=== PATIENT | female | born 1985 | race Caucasian/White ===

== ENCOUNTER 2016-10-15 21:22 | Emergency (ER) | payer OTHER ==
[2016-10-15] MEDS ORDERED: METOCLOPRAMIDE 5 MG/ML 2 ML VIAL IVP STA (22:00)
[2016-10-15] MEDS ORDERED: SODIUM CHLORIDE 0.9% 2,000 ML IV STA (22:00)
--- NOTE | 2016-10-15 22:13 | ED ---
Nausea/Vomiting/Diarrhea HPI - General Chief complaint: Nausea/Vomiting/Diarrhea Stated complaint: 7 weeks /Vomiting Time Seen by Provider: 10/15/16 22:00 Source: patient, family, RN notes reviewed Mode of arrival: ambulatory Limitations: no limitations - History of Present Illness Initial comments: 31-year-old female presents emergency Department chief complaint nausea vomiting in . Patient is A0. Patient states she's approximate 7 weeks along. She has no complaints of the denies any vaginal bleeding vaginal discharge, abdominal pain, dysuria or hematuria. She states that she has an upcoming appointment with her OB. Patient denies any fevers or chills. Denies any chest pain or shortness breath. Patient states she had hyperemesis gravidarum during her first and she feels somewhat at this time. - Related Data Home Medications Medication Instructions Recorded Confirmed Hpa-Jdwr-Qkvkb Acid 1 cap PO DAILY 10/15/16 10/15/16 [-U Capsule (formulary)] Previous Rx's Medication Instructions Recorded Metoclopramide [Reglan] 10 mg PO TID PRN #15 tab 10/15/16 Allergies Allergy/AdvReac Type Severity Reaction Status Date / Time No Known Allergies Allergy Verified 10/15/16 22:13 Review of Systems ROS Statement: Those systems with pertinent positive or pertinent negative responses have been documented in the HPI. ROS Other: All systems not noted in ROS Statement are negative. Past Medical History Past Medical History: No Reported History History of Any Multi-Drug Resistant Organisms: None Reported Past Surgical History: No Surgical Hx Reported Past Psychological History: Anxiety Smoking Status: Former smoker Past Alcohol Use History: None Reported Past Drug Use History: None Reported General Exam Limitations: no limitations General appearance: alert, in no apparent distress ENT exam: Present: normal oropharynx, mucous membranes moist Respiratory exam: Present: normal lung sounds bilaterally. Absent: respiratory distress, wheezes, rales, rhonchi, stridor Cardiovascular Exam: Present: regular rate, normal rhythm, normal heart sounds. Absent: systolic murmur, diastolic murmur, rubs, gallop, clicks GI/Abdominal exam: Present: soft, normal bowel sounds. Absent: distended, tenderness, guarding, rebound, rigid Back exam: Absent: CVA tenderness (R), CVA tenderness (L) Skin exam: Present: warm, dry, intact, normal color. Absent: rash Course Vital Signs 10/15/16 21:35 Temperature 98.8 F Pulse Rate 63 Respiratory 18 Rate Blood Pressure 110/59 O2 Sat by Pulse 99 Oximetry Medical Decision Making - Medical Decision Making 31-year-old female presents emergency department for nausea vomiting . Patient feels improved after IV fluids, Reglan. Patient does have ketonuria. Patient was hydrated. Patient will be discharged with Reglan follow-up with OB. - Lab Data Result diagrams: 10/15/16 22:22 10/15/16 22:22 Lab Results 10/15/16 10/15/16 10/15/16 Range/Units 22:22 22:22 22:22 WBC 13.0 H (3.8-10.6) k/uL RBC 4.25 (3.80-5.40) m/uL Hgb 13.8 (11.4-16.0) gm/dL Hct 39.6 (34.0-46.0) % MCV 93.3 (80.0-100.0) fL MCH 32.6 (25.0-35.0) pg MCHC 35.0 (31.0-37.0) g/dL RDW 12.3 (11.5-15.5) % Plt Count 264 (150-450) k/uL Neutrophils % 73 % Lymphocytes % 20 % Monocytes % 5 % Eosinophils % 1 % Basophils % 0 % Neutrophils # 9.4 H (1.3-7.7) k/uL Lymphocytes # 2.6 (1.0-4.8) k/uL Monocytes # 0.6 (0-1.0) k/uL Eosinophils # 0.1 (0-0.7) k/uL Basophils # 0.0 (0-0.2) k/uL Sodium 136 L (137-145) mmol/L Potassium 3.9 (3.5-5.1) mmol/L Chloride 102 (98-107) mmol/L Carbon Dioxide 24 (22-30) mmol/L Anion Gap 10 mmol/L BUN 8 (7-17) mg/dL Creatinine 0.65 (0.52-1.04) mg/dL Est GFR (MDRD) Af Amer >60 (>60 ml/min/1.73 sqM) Est GFR (MDRD) Non-Af >60 (>60 ml/min/1.73 sqM) Glucose 76 (74-99) mg/dL Calcium 9.7 (8.4-10.2) mg/dL Total Bilirubin 0.7 (0.2-1.3) mg/dL AST 16 (14-36) U/L ALT 18 (9-52) U/L Alkaline Phosphatase 64 (38-126) U/L Total Protein 7.8 (6.3-8.2) g/dL Albumin 4.4 (3.5-5.0) g/dL Lipase 74 (23-300) U/L Urine Color Yellow Urine Appearance Cloudy H (Clear) Urine pH 6.0 (5.0-8.0) Ur Specific Ce[place] 1.024 (1.001-1.035) Urine Protein Trace H (Negative) Urine Glucose (UA) Negative (Negative) Urine Ketones 3+ H (Negative) Urine Blood Trace H (Negative) Urine Nitrite Negative (Negative) Urine Bilirubin Negative (Negative) Urine Urobilinogen <2.0 (<2.0) mg/dL Ur Leukocyte Esterase Large H (Negative) Urine RBC 11 H (0-5) /hpf Urine WBC 15 H (0-5) /hpf Ur Squamous Epith Cells 10 H (0-4) /hpf Urine Bacteria Occasional H (None) /hpf Urine Mucus Many H (None) /hpf Disposition Clinical Impression: Nausea/vomiting in Disposition: HOME SELF-CARE Condition: Stable Instructions: Acute Nausea and Vomiting (ED) Additional Instructions: Please return to the Emergency Department if symptoms worsen or any other concerns. Prescriptions: Metoclopramide [Reglan] 10 mg PO TID PRN #15 tab PRN Reason: GERD Referrals: Ayana Britton MD [Primary Care Provider] - 1-2 days Time of Disposition: 23:26
[2016-10-15 22:40] LABS: Basophils % (A) 0 %; CH 32.9; CHCM 35.3; Eosinophils # (A) 0.1 k/uL (0-0.7); Eosinophils % (A) 1 %; HCT 39.6 % (34.0-46.0); HGB 13.8 gm/dL (11.4-16.0); Luc # (Auto) 0.24; Luc % (Auto) 2; Lymphocytes # (A) 2.6 k/uL (1.0-4.8); Lymphocytes % (A) 20 %; MCH 32.6 pg (25.0-35.0); MCV 93.3 fL (80.0-100.0); Mean Platelet Volume 7.4; Monocytes # (A) 0.6 k/uL (0-1.0); Monocytes % (A) 5 %; Neutrophils # (A) 9.4 k/uL (1.3-7.7); Neutrophils % (A) 73 %; RBC 4.25 m/uL (3.80-5.40); RDW 12.3 % (11.5-15.5); WBC (Perox) 13.22
[2016-10-15 22:43] LABS: Appearance,Urine Cloudy (Clear); Bacteria,Urine Occasional /hpf; Bilirubin,Urine Negative (Negative); Glucose,Urine (UA) Negative (Negative); Ketones,Urine 3+ (Negative); Leukocyte Esterase,Urine Large (Negative); Mucus,Urine Many /hpf; Nitrite,Urine Negative (Negative); Particle Count 11525; Protein,Urine Trace (Negative); RBC,Urine 11 /hpf (0-5); Specific Gravity,Urine 1.024 (1.001-1.035); Squamous Epithelial Cell,Urine 10 /hpf (0-4); UA Billing (MACRO vs. MICRO) MICRO; Urobilinogen,Urine <2.0 mg/dL (<2.0); WBC,Urine 15 /hpf (0-5)
[2016-10-15 22:46] LABS: ALT 18 U/L (9-52); AST 16 U/L (14-36); Alkaline Phosphatase 64 U/L (38-126); Anion Gap 10 mmol/L; Blood Urea Nitrogen 8 mg/dL (7-17); Calcium 9.7 mg/dL (8.4-10.2); Carbon Dioxide 24 mmol/L (22-30); Chloride 102 mmol/L (98-107); Glucose 76 mg/dL (74-99); Non-African American GFR(MDRD) >60 (>60 ml/min/1.73 sqM); Potassium 3.9 mmol/L (3.5-5.1); Sodium 136 mmol/L (137-145); Total Bilirubin 0.7 mg/dL (0.2-1.3); Total Protein 7.8 g/dL (6.3-8.2)
[2016-10-15 23:34] VITALS: BP 113/53; PULSE 86; RESP 16; TEMP 97.8
== END 2016-10-15 23:34 | disposition home or self-care (01) ==
LOC: EC 21:22
DX: O21.0 Mild hyperemesis gravidarum (principal); Z87.891 Personal history of nicotine dependence; Z3A.01 Less than 8 weeks gestation of pregnancy; Z79.899 Other long term (current) drug therapy
CPT/HCPCS: 99284; 96374; 96361; 36415; 80053; 83690; 85025; 81001; 84702; 87086; J2765

== ENCOUNTER 2016-11-06 13:23 | Emergency (ER) | payer OTHER ==
[2016-11-06] MEDS ORDERED: ONDANSETRON 4 MG/2 ML VIAL IVP STA (13:54)
[2016-11-06] MEDS ORDERED: SODIUM CHLORIDE 0.9% 1,000 ML IV STA ×2 (13:56)
[2016-11-06 14:21] LABS: Basophils % (A) 0 %; CH 32.8; CHCM 36.3; Eosinophils # (A) 0.1 k/uL (0-0.7); Eosinophils % (A) 0 %; HCT 40.7 % (34.0-46.0); HDW 2.16; HGB 14.8 gm/dL (11.4-16.0); Luc # (Auto) 0.17; Luc % (Auto) 1; Lymphocytes % (A) 13 %; MCHC 36.4 g/dL (31.0-37.0); MCV 90.6 fL (80.0-100.0); Mean Platelet Volume 7.3; Monocytes # (A) 0.5 k/uL (0-1.0); Monocytes % (A) 3 %; Neutrophils # (A) 12.8 k/uL (1.3-7.7); Neutrophils % (A) 82 %; RDW 12.4 % (11.5-15.5); WBC 15.6 k/uL (3.8-10.6); WBC (Perox) 14.49
[2016-11-06 14:29] LABS: Appearance,Urine Clear (Clear); Bilirubin,Urine Negative (Negative); Glucose,Urine (UA) Negative (Negative); Ketones,Urine 4+ (Negative); Leukocyte Esterase,Urine Small (Negative); Mucus,Urine Occasional /hpf; Nitrite,Urine Negative (Negative); PH, Urine 5.5 (5.0-8.0); Particle Count 8659; Protein,Urine 1+ (Negative); RBC,Urine 8 /hpf (0-5); Specific Gravity,Urine 1.027 (1.001-1.035); Squamous Epithelial Cell,Urine 2 /hpf (0-4); UA Billing (MACRO vs. MICRO) MICRO; WBC,Urine 10 /hpf (0-5)
[2016-11-06 14:33] LABS: ALT 26 U/L (9-52); AST 26 U/L (14-36); Alkaline Phosphatase 63 U/L (38-126); Anion Gap 18 mmol/L; Blood Urea Nitrogen 15 mg/dL (7-17); Carbon Dioxide 16 mmol/L (22-30); Chloride 104 mmol/L (98-107); Glucose 70 mg/dL (74-99); Non-African American GFR(MDRD) >60 (>60 ml/min/1.73 sqM); Potassium 4.5 mmol/L (3.5-5.1); Sodium 138 mmol/L (137-145); Total Bilirubin 0.9 mg/dL (0.2-1.3)
--- NOTE | 2016-11-06 15:41 | US ---
EXAMINATION TYPE: US OB <= 14 wk fetus DATE OF EXAM: 11/06/2016 COMPARISON: NONE CLINICAL HISTORY: Pain. vomitimg EXAM PERFORMED: Transabdominal (TA) EXAM MEASUREMENTS: GESTATIONAL AGE / DATING Physician Established: not established Dates by LMP: (10 weeks/2 days) EDC: 06/02/2017 Dates by First Scan: this is first scan Dates by Current Scan for: (10 weeks/5 days) EDC: 05/30/2017 MATERNAL ANATOMY Uterus: 10.1 x 7.9 x 9.8 cm Right Ovary: 2.9 x 1.8 x 3.5 cm Left Ovary: 3.4 x 1.9 x 3.4 Post CDS / Adnexa: wnl Presence of free fluid: none GESTATION / SURVEY CRL: 3.8cm (10 weeks/5 days) Yolk Sac (normal less than 6mm): not seen Heart Rate: 152 bpm Rhythm: Normal IUP: Viable IUP Date of LMP: 08/26/2016 viable IUP that correlates with LMP. IMPRESSION: Single intrauterine gestation estimated at 10 weeks 5 days gestation based on crown-rump length. Card iac activity measures 152 bpm.
--- NOTE | 2016-11-06 17:43 | ED ---
General Adult HPI - General Chief complaint: Nausea/Vomiting/Diarrhea Stated complaint: 10 weeks /Vomiting Time Seen by Provider: 11/06/16 13:40 Source: patient, RN notes reviewed Mode of arrival: ambulatory Limitations: no limitations - History of Present Illness Initial comments: 31-year-old female presents with a 2 day history of nausea and vomiting, approximately 12 episodes. Nonbloody nonbilious. Patient is currently approximately 10 weeks . She denies abdominal pain. Denies fever. States she has had some chills. She also reports having had morning sickness since approximately 6 weeks. She had similar symptoms with her first . She denies any vaginal bleeding. Patient has not had an ultrasound to confirm her . is diagnosed by home test. Her last menstrual period was August 26. She has not received any formal care but has been taking vitamins and has an appointment with Y[facility] SWITCH OPERATOR on November 10 which is 4 days from now. - Related Data Home Medications Medication Instructions Recorded Confirmed Mno-Djnq-Pwkxx Acid 1 cap PO DAILY 10/15/16 11/06/16 [-U Capsule (formulary)] Previous Rx's Medication Instructions Recorded Ondansetron Odt [Zofran Odt] 4 mg PO Q8HR PRN #10 tab 11/06/16 Allergies Allergy/AdvReac Type Severity Reaction Status Date / Time No Known Allergies Allergy Verified 11/06/16 13:40 Review of Systems ROS Statement: Those systems with pertinent positive or pertinent negative responses have been documented in the HPI. ROS Other: All systems not noted in ROS Statement are negative. Cardiovascular: Denies: chest pain, palpitations Endocrine: Denies: fatigue Musculoskeletal: Denies: back pain Past Medical History Past Medical History: No Reported History History of Any Multi-Drug Resistant Organisms: None Reported Past Surgical History: No Surgical Hx Reported Past Psychological History: Anxiety Smoking Status: Current every day smoker Past Alcohol Use History: None Reported Past Drug Use History: None Reported General Exam Limitations: no limitations General appearance: alert, in no apparent distress Head exam: Present: atraumatic, normocephalic Eye exam: Present: normal appearance, PERRL ENT exam: Present: mucous membranes dry Respiratory exam: Present: normal lung sounds bilaterally. Absent: respiratory distress Cardiovascular Exam: Present: regular rate, normal rhythm GI/Abdominal exam: Present: soft. Absent: distended, tenderness Extremities exam: Present: normal inspection. Absent: pedal edema Back exam: Present: normal inspection. Absent: CVA tenderness (R), CVA tenderness (L) Neurological exam: Present: alert, oriented X3 Psychiatric exam: Present: normal affect, normal mood Skin exam: Present: warm, dry Course Vital Signs 11/06/16 11/06/16 13:32 14:40 Temperature 97.1 F L 98.0 F Pulse Rate 78 61 Respiratory 16 16 Rate Blood Pressure 119/73 100/50 O2 Sat by Pulse 98 100 Oximetry - Reevaluation(s) Reevaluation #1: 11/06/16 17:37 Patient is reevaluated at 1730. Patient is feeling better she has no complaints of nausea at this time. She has received 2 L of IV fluid. She will follow-up with her Y[facility] SWITCH OPERATOR at her scheduled appointment on November 10. Medical Decision Making - Medical Decision Making Female presenting with a 4 week history of nausea vomiting worse over the last 2 days. She has had approximately 12 episodes of vomiting. She is currently 10 weeks by last menstrual period. She has had no formal care. She is currently taking only vitamins. Denies any abdominal pain. She appears dehydrated on examination with very dry mucous membranes. She is given IV fluids and electrolytes as well as CBC is obtained. CBC is unremarkable, electrolytes are within normal limits, urinalysis is positive for ketones consistent with profound nausea vomiting and dehydration. Patient is reevaluated and is feeling much better states her nausea is resolved. She has had no episodes of vomiting in the emergency department Ultrasound is obtained to confirm intrauterine . There is a 10 week 5 day single intrauterine gestation on ultrasound. heart tones Patient is instructed on when to return to the emergency department. Diagnosis: Nausea and vomiting of Disposition: Home with outpatient OB follow-up - Lab Data Result diagrams: 11/06/16 14:02 11/06/16 14:02 Lab Results 11/06/16 11/06/16 11/06/16 Range/Units 14:02 14:02 14:02 WBC 15.6 H (3.8-10.6) k/uL RBC 4.50 (3.80-5.40) m/uL Hgb 14.8 (11.4-16.0) gm/dL Hct 40.7 (34.0-46.0) % MCV 90.6 (80.0-100.0) fL MCH 33.0 (25.0-35.0) pg MCHC 36.4 (31.0-37.0) g/dL RDW 12.4 (11.5-15.5) % Plt Count 338 (150-450) k/uL Neutrophils % 82 % Lymphocytes % 13 % Monocytes % 3 % Eosinophils % 0 % Basophils % 0 % Neutrophils # 12.8 H (1.3-7.7) k/uL Lymphocytes # 2.0 (1.0-4.8) k/uL Monocytes # 0.5 (0-1.0) k/uL Eosinophils # 0.1 (0-0.7) k/uL Basophils # 0.0 (0-0.2) k/uL Sodium 138 (137-145) mmol/L Potassium 4.5 (3.5-5.1) mmol/L Chloride 104 (98-107) mmol/L Carbon Dioxide 16 L (22-30) mmol/L Anion Gap 18 mmol/L BUN 15 (7-17) mg/dL Creatinine 0.70 (0.52-1.04) mg/dL Est GFR (MDRD) Af Amer >60 (>60 ml/min/1.73 sqM) Est GFR (MDRD) Non-Af >60 (>60 ml/min/1.73 sqM) Glucose 70 L (74-99) mg/dL Calcium 10.0 (8.4-10.2) mg/dL Total Bilirubin 0.9 (0.2-1.3) mg/dL AST 26 (14-36) U/L ALT 26 (9-52) U/L Alkaline Phosphatase 63 (38-126) U/L Total Protein 8.0 (6.3-8.2) g/dL Albumin 4.7 (3.5-5.0) g/dL Lipase 77 (23-300) U/L Urine Color Urine Appearance (Clear) Urine pH (5.0-8.0) Ur Specific [place]rose (1.001-1.035) Urine Protein (Negative) Urine Glucose (UA) (Negative) Urine Ketones (Negative) Urine Blood (Negative) Urine Nitrite (Negative) Urine Bilirubin (Negative) Urine Urobilinogen (<2.0) mg/dL Ur Leukocyte Esterase (Negative) Urine RBC (0-5) /hpf Urine WBC (0-5) /hpf Ur Squamous Epith Cells (0-4) /hpf Hyaline Casts (0-2) /lpf Urine Mucus (None) /hpf Urine HCG, Qual Detected (Not Detectd) 11/06/16 Range/Units 14:02 WBC (3.8-10.6) k/uL RBC (3.80-5.40) m/uL Hgb (11.4-16.0) gm/dL Hct (34.0-46.0) % MCV (80.0-100.0) fL MCH (25.0-35.0) pg MCHC (31.0-37.0) g/dL RDW (11.5-15.5) % Plt Count (150-450) k/uL Neutrophils % % Lymphocytes % % Monocytes % % Eosinophils % % Basophils % % Neutrophils # (1.3-7.7) k/uL Lymphocytes # (1.0-4.8) k/uL Monocytes # (0-1.0) k/uL Eosinophils # (0-0.7) k/uL Basophils # (0-0.2) k/uL Sodium (137-145) mmol/L Potassium (3.5-5.1) mmol/L Chloride (98-107) mmol/L Carbon Dioxide (22-30) mmol/L Anion Gap mmol/L BUN (7-17) mg/dL Creatinine (0.52-1.04) mg/dL Est GFR (MDRD) Af Amer (>60 ml/min/1.73 sqM) Est GFR (MDRD) Non-Af (>60 ml/min/1.73 sqM) Glucose (74-99) mg/dL Calcium (8.4-10.2) mg/dL Total Bilirubin (0.2-1.3) mg/dL AST (14-36) U/L ALT (9-52) U/L Alkaline Phosphatase (38-126) U/L Total Protein (6.3-8.2) g/dL Albumin (3.5-5.0) g/dL Lipase (23-300) U/L Urine Color Yellow Urine Appearance Clear (Clear) Urine pH 5.5 (5.0-8.0) Ur Specific [place] 1.027 (1.001-1.035) Urine Protein 1+ H (Negative) Urine Glucose (UA) Negative (Negative) Urine Ketones 4+ H (Negative) Urine Blood Small H (Negative) Urine Nitrite Negative (Negative) Urine Bilirubin Negative (Negative) Urine Urobilinogen 2.0 (<2.0) mg/dL Ur Leukocyte Esterase Small H (Negative) Urine RBC 8 H (0-5) /hpf Urine WBC 10 H (0-5) /hpf Ur Squamous Epith Cells 2 (0-4) /hpf Hyaline Casts 1 (0-2) /lpf Urine Mucus Occasional H (None) /hpf Urine HCG, Qual (Not Detectd) Disposition Clinical Impression: Hyperemesis arising during Disposition: HOME SELF-CARE Condition: Good Instructions: Acute Nausea and Vomiting (ED) Additional Instructions: Patient will follow-up with her YARD SWITCH OPERATOR on November 10. She will return to the emergency department for worsening nausea vomiting or signs of dehydration. Prescriptions: Ondansetron Odt [Zofran Odt] 4 mg PO Q8HR PRN #10 tab PRN Reason: Nausea And Vomiting Referrals: Ayana Britton MD [Primary Care Provider] - 1-2 days Mike Koch MD [STAFF PHYSICIAN] - 1-2 days Time of Disposition: 17:37
[2016-11-06 17:54] VITALS: BP 104/70; PULSE 69; RESP 18; TEMP 97.7
== END 2016-11-06 17:54 | disposition home or self-care (01) ==
LOC: EC 13:23
DX: O21.0 Mild hyperemesis gravidarum (principal); O99.331 Smoking (tobacco) complicating pregnancy, first trimester; F17.200 Nicotine dependence, unspecified, uncomplicated; Z3A.10 10 weeks gestation of pregnancy
CPT/HCPCS: 36415; 80053; 83690; 85025; 81001; 81025; 76801; 99284; 96374; 96361 ×4; J2405

== ENCOUNTER 2016-11-29 14:05 | Emergency (ER) | payer OTHER ==
[2016-11-29 14:09] VITALS: BP 102/64; PULSE 77; RESP 18; TEMP 97.8
[2016-11-29] MEDS ORDERED: ONDANSETRON 4 MG ODT STARTER PACK 2 TAB BTL PO STA (14:26)
[2016-11-29] MEDS ORDERED: ONDANSETRON ODT 4 MG TAB PO STA (14:26)
--- NOTE | 2016-11-29 14:26 | ED ---
General Adult HPI - General Chief complaint: Nausea/Vomiting/Diarrhea Stated complaint: vomiting/13 wks Time Seen by Provider: 11/29/16 14:05 Source: patient, RN notes reviewed Mode of arrival: ambulatory Limitations: no limitations - History of Present Illness Initial comments: This is a 31-year-old female presents emergency Department 13 weeks . Patient states she ran out of her Zofran home she started vomiting yesterday has continued to vomit throughout the day. Patient states he feels as though she had a little bit dehydrated she decided come to the emergency department to get her medications refilled. Patient denies any abdominal pain patient denies any pelvic pain patient denies any vaginal bleeding. Patient denies any pelvic cramping. Patient denies any fever chills per patient denies any difficulty breathing shortest breath per patient denies any lightheadedness dizziness or near syncopal episode. Patient states she does not really want an IV she just wants get some medicine so that she can go home and drink fluids on her own. - Related Data Home Medications Medication Instructions Recorded Confirmed Blw-Lend-Fjwms Acid 1 cap PO DAILY 10/15/16 11/06/16 [-U Capsule (formulary)] Previous Rx's Medication Instructions Recorded Ondansetron Odt [Zofran Odt] 4 mg PO Q8HR PRN #10 tab 11/06/16 Ondansetron Odt [Zofran Odt] 4 mg PO Q8HR PRN #10 tab 11/29/16 Allergies Allergy/AdvReac Type Severity Reaction Status Date / Time No Known Allergies Allergy Verified 11/29/16 14:09 Review of Systems ROS Statement: Those systems with pertinent positive or pertinent negative responses have been documented in the HPI. ROS Other: All systems not noted in ROS Statement are negative. Past Medical History Past Medical History: No Reported History History of Any Multi-Drug Resistant Organisms: None Reported Past Surgical History: No Surgical Hx Reported Past Psychological History: Anxiety, Depression Smoking Status: Current every day smoker Past Alcohol Use History: None Reported Past Drug Use History: None Reported General Exam - General Exam Comments Initial Comments: GENERAL: Patient is well-developed and well-nourished. Patient is nontoxic and well- hydrated and is in no acute distress. ENT: Neck is soft and supple. No significant lymphadenopathy is noted. Oropharynx is clear. Moist mucous membranes. Neck has full range of motion without eliciting any pain. EYES: The sclera were anicteric and conjunctiva were pink and moist. Extraocular movements were intact and pupils were equal round and reactive to light. Eyelids were unremarkable. PULMONARY: Unlabored respirations. Good breath sounds bilaterally. No audible rales rhonchi or wheezing was noted. CARDIOVASCULAR: There is a regular rate and rhythm without any murmurs gallops or rubs. ABDOMEN: Soft and nontender with normal bowel sounds. No palpable organomegaly was noted. There is no palpable pulsatile mass. SKIN: Skin is clear with no lesions or rashes and otherwise unremarkable. NEUROLOGIC: Patient is alert and oriented x3. Cranial nerves II through XII are grossly intact. Motor and sensory are also intact. Normal speech, volume and content. Symmetrical smile. MUSCULOSKELETAL: Normal extremities with adequate strength and full range of motion. No lower extremity swelling or edema. No calf tenderness. LYMPHATICS: No significant lymphadenopathy is noted PSYCHIATRIC: Normal psychiatric evaluation. Normal interpersonal interactions appears functionally intact in deals appropriately with others. No signs of depression. No signs of anxiety. Limitations: no limitations Course Vital Signs 11/29/16 14:07 Temperature 97.8 F Pulse Rate 77 Respiratory 18 Rate Blood Pressure 102/64 O2 Sat by Pulse 99 Oximetry Disposition Clinical Impression: Hyperemesis gravidarum Disposition: HOME SELF-CARE Instructions: Hyperemesis Gravidarum (ED) Prescriptions: Ondansetron Odt [Zofran Odt] 4 mg PO Q8HR PRN #10 tab PRN Reason: Nausea And Vomiting Referrals: Ayana Britton MD [Primary Care Provider] - 1-2 days
== END 2016-11-29 14:47 | disposition home or self-care (01) ==
LOC: EC 14:05
DX: O21.0 Mild hyperemesis gravidarum (principal); O99.331 Smoking (tobacco) complicating pregnancy, first trimester; F17.200 Nicotine dependence, unspecified, uncomplicated; Z79.899 Other long term (current) drug therapy; Z3A.13 13 weeks gestation of pregnancy
CPT/HCPCS: 99283; S0119

== ENCOUNTER → 2017-01-04 | Outpatient (CLI) | payer OTHER ==
[2017-01-04 15:39] LABS: CH 32.3; CHCM 34.7; HCT 35.5 % (34.0-46.0); HGB 12.4 gm/dL (11.4-16.0); MCH 32.7 pg (25.0-35.0); MCV 93.5 fL (80.0-100.0); Mean Platelet Volume 7.2; RBC 3.79 m/uL (3.80-5.40); RDW 12.5 % (11.5-15.5); WBC 14.9 k/uL (3.8-10.6)
[2017-01-04 15:51] LABS: Glucose 66 mg/dL (74-99); Non-African American GFR(MDRD) >60 (>60 ml/min/1.73 sqM)
[2017-01-04 16:19] LABS: Hepatitis B Surface Ag Index 0.07
[2017-01-04 19:16] LABS: Treponemal Ab Non-Reactive (Non-Reactive)
[2017-01-04 20:28] LABS: Rubeola (Measles) IgG 1.3 AI
[2017-01-06 05:19] LABS: Toxoplasma Antibody (IgG) <3.0 IU/mL (<7.2)
[2017-01-06 08:21] LABS: Alpha Fetoprotein 52.1 ng/mL; Alpha Fetoprotein (M.O.M) 1.01 (Negative); B-HCG (M.O.M.) 1.73; Gestational Age (days) 5; Human Chorionic Gonadotropin 30.2 IU/mL; Inhibin A (M.O.M.) 1.81; Interpretation SeeBelow; Maternal Age at EDD (Yrs) 32; Smoker Yes; Unconjugated Estriol (M.O.M.) 1.67
== END | disposition home or self-care (01) ==
LOC: LABWHC1 14:33
PROVIDERS: ATTEND Obstetrics & Gynecology
DX: Z34.82 Encounter for supervision of other normal pregnancy, second trimester (principal); Z3A.00 Weeks of gestation of pregnancy not specified
CPT/HCPCS: 36415; 82105; 82565; 82677; 82947; 84702; 85027; 86336; 86762; 86765; 86777; 86778; 86780; 86850; 86900; 86901; 87340; 87390

== ENCOUNTER 2017-04-26 06:16 | Observation (INO) | payer OTHER ==
[2017-04-26 07:23] LABS: Basophils # (A) 0.1 k/uL (0-0.2); Basophils % (A) 0 %; Eosinophils % (A) 0 %; HCT 35.3 % (34.0-46.0); HGB 11.5 gm/dL (11.4-16.0); Lymphocytes # (A) 0.8 k/uL (1.0-4.8); Lymphocytes % (A) 8 %; MCH 30.4 pg (25.0-35.0); MCHC 32.5 g/dL (31.0-37.0); MCV 93.4 fL (80.0-100.0); Mean Platelet Volume 8.3; Monocytes # (A) 0.7 k/uL (0-1.0); Monocytes % (A) 7 %; Neutrophils # (A) 8.7 k/uL (1.3-7.7); Neutrophils % (A) 84 %; Platelet Count 343 k/uL (150-450); RBC 3.77 m/uL (3.80-5.40); RDW 13.5 % (11.5-15.5); WBC 10.4 k/uL (3.8-10.6)
[2017-04-26] MEDS: DEXTROSE 5%-LACTATED RINGERS 1,000 ML IV SCH ×2 (07:24→18:21)
[2017-04-26 07:31] LABS: Potassium 4.5 mmol/L (3.5-5.1)
[2017-04-26] MEDS: LACTATED RINGERS 1,000 ML IV SCH (07:37)
--- NOTE | 2017-04-26 07:56 | P.HPOB ---
History of Present Illness H&P Date: 04/26/17 Chief Complaint: Nausea vomiting and contractions. This patient is a pleasant 31-year-old 2 para 1 female estimated date of confinement 06/02/2017 estimated gestational age 34-5/7 weeks gestation admitted to labor and delivery with today complaints of nausea vomiting and most recent onset of contractions. Patient's care has been uncomplicated. Patient states that she began getting sick on Tuesday and is unable to keep anything down. No diarrhea. Patient began having some contraction she felt about 3:00 this morning and presented to labor and delivery for evaluation. Review of Systems Constitutional: Reports as per HPI Cardiovascular: Denies chest pain, Denies shortness of breath Gastrointestinal: Reports heartburn, Reports nausea, Reports vomiting Genitourinary: Reports Menstruation: Reports amenorrhea Past Medical History Past Medical History: No Reported History History of Any Multi-Drug Resistant Organisms: None Reported Past Surgical History: No Surgical Hx Reported Past Anesthesia/Blood Transfusion Reactions: No Reported Reaction Past Psychological History: No Psychological Hx Reported Smoking Status: Current every day smoker Past Alcohol Use History: None Reported Past Drug Use History: None Reported Medications and Allergies Home Medications Medication Instructions Recorded Confirmed Type Ikv-Vnlh-Pykbp Acid 1 cap PO DAILY 10/15/16 04/26/17 History [-U Capsule (formulary)] Allergies Allergy/AdvReac Type Severity Reaction Status Date / Time No Known Allergies Allergy Verified 04/26/17 06:47 Exam - Vital Signs Vital signs: Intake and Output 04/25/17 04/26/17 04/26/17 22:59 06:59 14:59 Other: Weight 163 kg - OBG Physical Exam Abdomen: bowel sounds normal, no diffuse tenderness, no bruit present, no guarding noted, no hepatomegaly, no splenomegaly, no mass Vulva: both: normal Vagina: normal moisture, no discharge Cervix: Cervix is 2 cm dilated and thick. Uterus: enlarged Results blood work shows she is O positive, rubella immune, RPR nonreactive, HIV nonreactive, hepatitis B negative, quad screen was normal, ultrasounds have been normal, group B streptococcus not done yet but has a history of positive with previous . Result Diagrams: 04/26/17 07:00 04/26/17 07:00 Abnormal Lab Results - Last 24 Hours (Table) 12/19/17 12/19/17 Range/Units 07:00 07:00 RBC 3.77 L (3.80-5.40) m/uL Neutrophils # 8.7 H (1.3-7.7) k/uL Lymphocytes # 0.8 L (1.0-4.8) k/uL Sodium 133 L (137-145) mmol/L Carbon Dioxide 16 L (22-30) mmol/L Assessment and Plan (1) Nausea & vomiting Narrative/Plan: This is a pleasant 31-year-old 2 para 1 female 34-5/7 weeks' gestation with 2 day history of nausea vomiting and inability to keep anything down and now with contractions. This most likely is secondary to dehydration. Plan at this time is IV fluids, admission for observation, due to concern for delivery Celestone will be administered. When I get a complete ultrasound to check weight and position. If patient were to progress she would need to be transferred due to being less than 35 weeks. Current Visit: Yes Status: Acute Code(s): R11.2 - NAUSEA WITH VOMITING, UNSPECIFIED SNOMED Code(s): 52968493 (2) uterine contractions in third trimester, antepartum Current Visit: Yes Status: Acute Code(s): O47.03 - FALSE LABOR BEFORE 37 COMPLETED WEEKS OF GEST, THIRD TRI SNOMED Code(s): 578116933
[2017-04-26] MEDS: BETAMET ACET-BETAMETH SOD PHOS 6 MG/ML VIAL IM SCH (08:34)
[2017-04-26 08:55] VITALS: BMI 63.6
[2017-04-26 09:12] LABS: Appearance,Urine Clear (Clear); Bacteria,Urine Rare /hpf; Bilirubin,Urine Negative (Negative); Blood,Urine Small (Negative); Color,Urine Yellow; Glucose,Urine (UA) 4+ (Negative); Leukocyte Esterase,Urine Moderate (Negative); Mucus,Urine Rare /hpf; Nitrite,Urine Negative (Negative); PH, Urine 5.5 (5.0-8.0); Protein,Urine Trace (Negative); RBC,Urine 4 /hpf (0-5); Specific Gravity,Urine 1.024 (1.001-1.035); Squamous Epithelial Cell,Urine 6 /hpf (0-4); Urobilinogen,Urine <2.0 mg/dL (<2.0); WBC,Urine 7 /hpf (0-5)
[2017-04-26] MEDS ORDERED: ONDANSETRON 4 MG/2 ML VIAL IVP PRN (09:20)
[2017-04-26 09:58] LABS: Ketones,Urine 4+ (Negative)
--- NOTE | 2017-04-26 15:35 | US ---
EXAMINATION TYPE: US OB >= 14 wk fetus DATE OF EXAM: 04/26/2017 COMPARISON: US < CLINICAL HISTORY: contractions TECHNIQUE: Transabdominal (TA) GESTATIONAL AGE / DATING Physician Established: (34 weeks/5 days) EDC: 06/02/17 Dates by LMP: (34 weeks/5 days) EDC: 06/02/17 Dates by First Scan: (35 weeks/1 days) EDC: 05/30/17 Dates by Current Scan: (34 weeks/3 days) EDC: 06/04/17 SURVEY IUP: Single PLACENTA: Anterior PREVIA: No Previa ANDRIA: 11.4 cm CERVICAL LENGTH (transabdominal: norm > 3.0cm): 1.0 cm CERVICAL LENGTH (transvaginal: norm> 2.5cm): not done per Kaylynn FERRARI BIOMETRY PRESENTATION: Vertex LIE: Longitudinal BPD: 8.7 cm 35 weeks / 1 days HC: 30.9 cm 34 weeks / 4 days AC: 30.7 cm 34 weeks / 4 days FL: 6.8 cm 34 weeks / 5 days ESTIMATED WEIGHT IN GRAMS: 2493 grams ESTIMATED WEIGHT IN LBS/OZ: 5 lbs. 8 oz. WEIGHT PERCENTAGE BASED ON ESTABLISHED DATES: 45% HC/AC: 1.0 FL/AC: 21.9 HEART RATE: 147 bpm RHYTHM: Normal IMPRESSION: 1. Single intrauterine gestation estimated at 34 weeks 3 days gestation based on current ultrasound m easurements. This would have a calculated EDC of 06/04/2017. 2. Cardiac activity measures 147 bpm. 3. small parts are not evaluated during this exam.
[2017-04-27] MEDS: LACTATED RINGERS 1,000 ML IV SCH ×2 (03:09→09:51)
--- NOTE | 2017-04-27 06:24 | P.PN ---
Progress Note - Text Progress Note Date: 04/27/17 Hospital day #2. Patient is 34-6/7 weeks' gestation. Urine showed 4+ ketones and yesterday she was given sufficient IV hydration and her contractions stopped. Patient was given Celestone repeat her second dose this morning. It appears her contractions related to acute dehydration secondary to her gastrointestinal illness. Patient is stable now for discharge home. She'll follow-up in my office in 1 week. She is encouraged to take lots of oral fluids and contact my office and unable to keep coming down for 12 to 24-hour period.
[2017-04-27] MEDS: BETAMET ACET-BETAMETH SOD PHOS 6 MG/ML VIAL IM SCH (08:28)
[2017-04-27 08:52] VITALS: BP 99/45; PULSE 87; RESP 18; TEMP 97.9
== END 2017-04-27 09:48 | disposition home or self-care (01) ==
LOC: FBPOP 06:16 → 4FBP 07:48
PROVIDERS: ADMIT Obstetrics & Gynecology; ATTEND Obstetrics & Gynecology
DX: O99.613 Diseases of the digestive system complicating pregnancy, third trimester (principal); K92.89 Other specified diseases of the digestive system; E86.0 Dehydration; O60.03 Preterm labor without delivery, third trimester; Z3A.34 34 weeks gestation of pregnancy; O99.333 Smoking (tobacco) complicating pregnancy, third trimester; F17.200 Nicotine dependence, unspecified, uncomplicated
CPT/HCPCS: 59025; 96372 ×2; 96374; 82731; 80051; 85025; 81001; 76805; G0463; G0378 ×2; J0702 ×2; J2405; 96360; 96365; 99214

== ENCOUNTER 2017-05-16 18:55 | Inpatient (IN) | payer OTHER ==
[~2017-05-16 18:55] MED LIST: BUPIVACAINE (PF) 0.25% 30 ML VIAL ONE; SODIUM CHLORIDE 0.9% 100 ML BAG ONE; fentaNYL (PF) 50 MCG/ML 5 ML AMP ONE
[2017-05-16] MEDS ORDERED: METHYLERGONOVINE 0.2 MG/ML 1 ML AMP IM PRN (21:39)
[2017-05-16] MEDS ORDERED: CARBOPROST TROMETHAMINE 250 MCG/ML 1 ML AMP IM PRN (21:39)
[2017-05-16] MEDS ORDERED: LIDOCAINE 1% (PF) 10 MG/ML (30 ML SDV) SQ PRN (21:39)
[2017-05-16] MEDS ORDERED: TERBUTALINE 1 MG/ML VIAL SQ PRN (21:39)
[2017-05-16] MEDS ORDERED: OXYTOCIN 10 UNIT/ML 1 ML VIAL IM PRN (21:39)
[2017-05-16] MEDS ORDERED: AMPICILLIN 2,000 MG in SODIUM CHLORIDE 0.9% 100 ML IVPB STA (21:39)
[2017-05-16 22:07] VITALS: BMI 28.5
[2017-05-16 22:19] LABS: Basophils % (A) 0 %; Eosinophils # (A) 0.1 k/uL (0-0.7); Eosinophils % (A) 1 %; HCT 35.3 % (34.0-46.0); HGB 11.8 gm/dL (11.4-16.0); Lymphocytes # (A) 3.1 k/uL (1.0-4.8); Lymphocytes % (A) 23 %; MCH 30.9 pg (25.0-35.0); MCHC 33.5 g/dL (31.0-37.0); MCV 92.4 fL (80.0-100.0); Mean Platelet Volume 7.3; Monocytes # (A) 0.7 k/uL (0-1.0); Monocytes % (A) 5 %; Neutrophils # (A) 9.7 k/uL (1.3-7.7); Neutrophils % (A) 70 %; Platelet Count 377 k/uL (150-450); RBC 3.83 m/uL (3.80-5.40); RDW 14.2 % (11.5-15.5); WBC 13.8 k/uL (3.8-10.6)
[2017-05-16] MEDS: LACTATED RINGERS 1,000 ML IV SCH (22:55)
[2017-05-17] MEDS ORDERED: OXYTOCIN 20 UNITS/1000 ML NS 1,000 ML IV SCH ×2 (02:30→09:22)
[2017-05-17] MEDS: AMPICILLIN 1,000 MG in SODIUM CHLORIDE 0.9% 50 ML IVPB SCH ×2 (02:49→07:07)
--- NOTE | 2017-05-17 07:07 | P.HPOB ---
History of Present Illness H&P Date: 05/17/17 Chief Complaint: Contractions This patient is a pleasant 31-year-old 2 para 1 female estimated date of confinement 06/02/2017 estimated gestational age 37-5/7 weeks gestation admitted by Dr. Gavin last evening with complaint of contractions. Patient's felt to be in active labor. care has been complicated by contractions otherwise without complications. She did have a positive group B strep with previous and with this as well. Patient has a previous term vaginal delivery. Review of Systems Gastrointestinal: Reports heartburn Genitourinary: Reports Menstruation: Reports amenorrhea Past Medical History Past Medical History: No Reported History History of Any Multi-Drug Resistant Organisms: None Reported Past Surgical History: No Surgical Hx Reported Past Anesthesia/Blood Transfusion Reactions: No Reported Reaction Past Psychological History: No Psychological Hx Reported Smoking Status: Current every day smoker Past Alcohol Use History: None Reported Past Drug Use History: None Reported - Past Family History Mother History Unknown: Yes Medications and Allergies Home Medications Medication Instructions Recorded Confirmed Type Bln-Fkys-Nkwry Acid 1 cap PO DAILY 10/15/16 05/16/17 History [-U Capsule (formulary)] Allergies Allergy/AdvReac Type Severity Reaction Status Date / Time No Known Allergies Allergy Verified 05/16/17 19:08 Exam - Vital Signs Vital signs: Vital Signs Temp Pulse Resp BP Pulse Ox 05/16/17 22:02 97.1 F L 81 19 124/66 100 05/16/17 22:00 97.1 F L 81 18 147/71 100 Intake and Output 05/16/17 05/17/17 05/17/17 22:59 06:59 14:59 Intake Total 100 Balance 100 Intake: Oral 100 Other: # Voids 1 Weight 73.028 kg - OBG Physical Exam Abdomen: bowel sounds normal, no diffuse tenderness, no bruit present, no guarding noted, no hepatomegaly, no splenomegaly, no mass Vagina: normal moisture, no discharge Cervix: no lesion (Cervix is 4-5 cm dilated.), no discharge Uterus: enlarged (Fundal height is consistent with term .) Results blood work shows she is O positive, rubella immune, RPR is nonreactive , HIV is nonreactive, hepatitis B is negative, toxoplasmosis was negative, quad screen was negative, ultrasounds have been normal. Result Diagrams: 05/16/17 21:55 Abnormal Lab Results - Last 24 Hours (Table) 05/16/17 Range/Units 21:55 WBC 13.8 H (3.8-10.6) k/uL Neutrophils # 9.7 H (1.3-7.7) k/uL Assessment and Plan Assessment: This is a pleasant 32-year-old 2 para 1 female 37-5/7 weeks gestation who is admitted to labor and delivery last evening in active labor. Patient is a positive group B strep culture. Patient's on antibiotics at this time. Plan is artificial rupture membranes and anticipate vaginal delivery. (1) Normal labor Current Visit: Yes Status: Acute Code(s): O80 - ENCOUNTER FOR FULL-TERM UNCOMPLICATED DELIVERY; Z37.9 - OUTCOME OF DELIVERY, UNSPECIFIED SNOMED Code(s ): 98306110 (2) Group B streptococcal carriage complicating Current Visit: Yes Status: Acute Code(s): O99.820 - STREPTOCOCCUS B CARRIER STATE COMPLICATING SNOMED Code(s): 340518353953924
[2017-05-17] MEDS: LACTATED RINGERS 1,000 ML IV SCH (07:11)
[2017-05-17] MEDS ORDERED: BISACODYL 10 MG SUPP RECTAL PRN (09:22)
[2017-05-17] MEDS ORDERED: SIMETHICONE 80 MG CHEWABLE PO PRN (09:22)
[2017-05-17] MEDS ORDERED: ZOLPIDEM 5 MG TAB PO PRN (09:22)
[2017-05-17] MEDS ORDERED: HYDROCORTISONE 2.5% RECTAL CREAM 30 GM TUBE RECTAL PRN (09:22)
[2017-05-17] MEDS ORDERED: Acetaminophen-Codeine 300-30mg TAB PO PRN ×2 (09:22)
[2017-05-17] MEDS ORDERED: diphenhydrAMINE 25 MG CAP PO PRN (09:22)
[2017-05-17] MEDS ORDERED: BENZOCAINE/MENTHOL SPRAY 1 GM/SPRAY AEROSOL TOPICAL PRN (09:22)
[2017-05-17] MEDS ORDERED: WITCH HAZEL 1 EACH MED..PAD TOPICAL PRN (09:22)
[2017-05-17] MEDS ORDERED: diphenhydrAMINE 50 MG/ML 1 ML VIAL IVP PRN (09:22)
[2017-05-17] MEDS ORDERED: LANOLIN CREAM 5 GM TUBE TOPICAL PRN (09:22)
[2017-05-17] MEDS: SENNOSIDES-DOCUSATE SODIUM 1 EACH TAB PO SCH ×2 (10:43→19:46)
--- NOTE | 2017-05-17 12:55 | P.PROBDLV ---
Vaginal Delivery Note - . Vaginal Delivery Note: Normal spontaneous vaginal delivery viable female infant Apgars 9 and 9 delivery time is 0856 hours. Please see dictated H&P for intimate details of this patient's admission. Brief summary this is a pleasant 32-year-old 2 para 1 female 37-5/7 weeks gestation admitted last evening by Dr. Gavin for labor. The patient is given IV antibiotics secondary to a positive group B strep culture. Patient's labor is augmented with Pitocin and this morning she has artificial rupture membranes for clear fluid. Labor thereafter progresses very quickly and she gets an epidural for pain control. Patient gets to complete pushes for approximately 30 minutes head to the perineum. Her perineum was quite tight and at this time is decided to do a midline episiotomy for delivery. I infiltrate posteriorly 1% lidocaine and a midline episiotomy is made. We then have controlled delivery of the infant's head over the perineum. Mouth and nares are bulb suctioned. Nuchal cord 1 which is easily reduced. Then have delivery the anterior posterior shoulder and rest this infant's body. Is a vigorous viable female infant Apgars 9 and 9 delivery time is 0856 hours. After delivery of the infant the umbilical cord is doubly clamped and cut appears to be trivascular. Placenta spontaneously delivered intact. Inspection of perineum shows second-degree laceration which is repaired with 3- 0 Vicryl usual fashion excellent reapproximation is noted. All counts are correct 3. There are no complications. Infant and mother stable delivery room.
[2017-05-17] MEDS: IBUPROFEN 600 MG TAB PO PRN ×2 (13:06→19:47)
[2017-05-17] MEDS: ACETAMINOPHEN TAB 325 MG TAB PO PRN (22:41)
[2017-05-18] MEDS: IBUPROFEN 600 MG TAB PO PRN ×2 (04:50→14:54)
--- NOTE | 2017-05-18 06:33 | P.PNOBGVD ---
Subjective - Subjective Patient reports: Reports appetite normal, Reports voiding normally, Reports pain well controlled, Reports ambulating normally : doing well Objective - Latest Vital Signs Latest vital signs: Vital Signs Temp Pulse Resp BP Pulse Ox 05/18/17 00:00 97.6 F 79 16 104/57 98 05/17/17 20:00 97.7 F 78 16 116/70 97 05/17/17 15:24 98.2 F 86 17 108/58 96 05/17/17 11:14 97.0 F L 77 17 110/71 100 05/17/17 10:44 82 17 102/66 05/17/17 10:14 77 19 101/65 05/17/17 09:59 83 18 112/66 05/17/17 09:44 84 17 117/61 05/17/17 09:29 86 16 119/66 05/17/17 09:14 97.1 F L 100 17 102/55 99 Intake and Output 05/17/17 05/17/17 05/18/17 14:59 22:59 06:59 Intake Total 20.75 Balance 20.75 Intake: Intake, IV Titration 20.75 Amount Oxytocin 20 Units/1000 ml 20.75 Ns 1,000 ml @ 1 MILLIUNIT/MIN 3 mls/hr IV .Q24H [facility] Rx#:[id number] Other: # Voids 1 2 1 - Exam Lungs: bilateral: normal Chest: Normal S1, Normal S2 Extremities: Present: normal Abdomen: Present: normal appearance, soft Uterus: Present: normal, firm Assessment and Plan Assessment: day #1. Patient is resting without complaints. Vital signs are stable and she is afebrile. Uterus is firm nontender she's having normal lochia. My impression this is a normal course. Plan is to continue routine care and discharge home tomorrow. (1) Normal labor Current Visit: Yes Status: Acute Code(s): O80 - ENCOUNTER FOR FULL-TERM UNCOMPLICATED DELIVERY; Z37.9 - OUTCOME OF DELIVERY, UNSPECIFIED SNOMED Code(s ): 63117070 (2) Group B streptococcal carriage complicating Current Visit: Yes Status: Acute Code(s): O99.820 - STREPTOCOCCUS B CARRIER STATE COMPLICATING SNOMED Code(s): 874695746807609
[2017-05-18] MEDS: ACETAMINOPHEN TAB 325 MG TAB PO PRN (07:46)
[2017-05-18] MEDS: SENNOSIDES-DOCUSATE SODIUM 1 EACH TAB PO SCH (07:47)
[2017-05-18 16:17] VITALS: BP 124/73; PULSE 70; RESP 18; TEMP 97.8
--- NOTE | 2017-05-20 06:25 | P.DS ---
Providers Date of admission: 05/16/17 21:22 Expected date of discharge: 05/18/17 Attending physician: Mike Koch Primary care physician: Stated None - Discharge Diagnosis(es) (1) Normal labor Status: Acute (2) Group B streptococcal carriage complicating Status: Acute Hospital Course: Please see dictated H&P for intimate details of this patient's admission. Brief summary this is a pleasant 32-year-old 2 para [address] Gavin in active labor. Patient was on have a vaginal delivery of a viable female infant. Please see dictated delivery note. day 1 patient wishes to go home as felt be stable for discharge home follow up with me in 6 weeks. Procedures: Normal spontaneous vaginal delivery. Patient Condition at Discharge: Good Plan - Discharge Summary New Discharge Prescriptions: New Acetaminophen-Codeine 300-30mg [Tylenol w/codeine #3] 1 - 2 each PO Q4HR PRN #20 tab PRN Reason: Mild Pain exceeding Tylenol Ibuprofen [Motrin] 600 mg PO Q6HR PRN #40 tab PRN Reason: Mild Pain Or Fever >= 100.5 No Action Xpt-Xkyi-Tjild Acid [-U Capsule (formulary)] 1 cap PO DAILY Discharge Medication List Icm-Adli-Tgtly Acid [-U Capsule (formulary)] 1 cap PO DAILY 01/23 [History] Acetaminophen-Codeine 300-30mg [Tylenol w/codeine #3] 1 - 2 each PO Q4HR PRN # 20 tab 05/18/17 [Rx] Ibuprofen [Motrin] 600 mg PO Q6HR PRN #40 tab 05/18/17 [Rx] Patient Instructions/Handouts: Vaginal Delivery (DC) Activity/Diet/Wound Care/Special Instructions: No intercourse or anything per vagina for 6 weeks. Please call if any fever, chills, excessive vaginal bleeding and/or abdominal pain. Discharge Disposition: HOME SELF-CARE
== END 2017-05-18 18:30 | disposition home or self-care (01) | DRG 775 ==
LOC: FBPOP 18:55 → 4FBP 21:22
PROVIDERS: ADMIT Obstetrics & Gynecology; ATTEND Obstetrics & Gynecology
PROC: 10E0XZZ Delivery of Products of Conception, External Approach (ICD-10-PCS; principal; 2017-05-17)
PROC: 0W8NXZZ Division of Female Perineum, External Approach (ICD-10-PCS; 2017-05-17)
PROC: 00HU33Z Insertion of Infusion Device into Spinal Canal, Percutaneous Approach (ICD-10-PCS; 2017-05-17)
PROC: 3E0R3NZ Introduction of Analgesics, Hypnotics, Sedatives into Spinal Canal, Percutaneous Approach (ICD-10-PCS; 2017-05-17)
PROC: 10907ZC Drainage of Amniotic Fluid, Therapeutic from Products of Conception, Via Natural or Artificial Opening (ICD-10-PCS; 2017-05-17)
DX: O99.824 Streptococcus B carrier state complicating childbirth (principal); F17.200 Nicotine dependence, unspecified, uncomplicated; O99.334 Smoking (tobacco) complicating childbirth; O69.81X0 Labor and delivery complicated by cord around neck, without compression, not applicable or unspecified; Z3A.37 37 weeks gestation of pregnancy; Z37.0 Single live birth
CPT/HCPCS: 59025; 85025; 88307; 99213

== ENCOUNTER 2019-01-11 02:17 | Outpatient (CLI) | payer BC ==
[2019-01-11 02:55] VITALS: BP 121/70; PULSE 99; RESP 18; TEMP 98.2
--- NOTE | 2019-01-11 16:20 | P.MSEPDOC ---
Presenting Problems - Arrival Data Date of Arrival on Unit: 01/11/19 Time of Arrival on Unit: 02:10 Mode of Transport: Ambulatory - Complaint OB-Reason for Admission/Chief Complaint: Possible Onset of Labor Comment: Pt complains of contractions off and on since 6 pm that recently were 5 minutes apart. Medical History - Information : 3 Para: 2 Term: 2 : 0 Abortions: Spontaneous or Elective: 0 Number of Living Children: 2 - Gestational Age Gestational Age by NOEL (wks/days): 36 Weeks and 3 Days - History Sexually Transmitted Diseases: HSV Review of Systems - Review of Systems Constitutional: No problems Breast: No problems ENT: No problems Cardiovascular: No problems Respiratory: No problems Gastrointestinal: No problems Genitourinary: No problems Musculoskeletal: No problems Neurological: No problems Skin: No problems Vital Signs - Temperature Temperature: 98.2 F Temperature Source: Oral - Pulse Pulse Oximetery Pulse Rate: 99 Pulse Assessment Method: Pulse Oximetry - Respirations Respiratory Rate: 18 Oxygen Delivery Method: Room Air - Blood Pressure Right Arm Blood Pressure: 121/70 Blood Pressure Mean: 87 Blood Pressure Source: Automatic Cuff Medical Screen Scoring (Pre) - Cervical Exam Dilation: Exam Deferred Effacement: Exam Deferred Membranes: Intact - Uterine Contractions Frequency: N/A Duration: N/A Intensity: N/A - Maternal Vital Signs Maternal Temperature: N/A Maternal Blood Pressure: N/A Signs of Preeclampsia: N/A Maternal Respirations: N/A - Maternal Trauma Maternal Trauma: N/A - Assessment - Baby A Baseline FHR: 130 Heart Rate - NICHD Category: Category I (Normal) = 0 NST: Reactive Position: N/A Station: N/A - Total Score - Baby A Total Score - Baby A: 0 - Total Score - Baby B Total Score - Baby B: 0 - Total Score - Baby C Total Score - Baby C: 0 - Level of Risk - Baby A Level of Risk - Baby A: Low (0-5) - Level of Risk - Baby B Level of Risk - Baby B: Low (0-5) - Level of Risk - Baby C Level of Risk - Baby C: Low (0-5) Physician Notification (Post) - Physician Notified Physician Notified Date: 01/11/19 Physician Notified Time: 03:30 Physician/Practitioner Notified:: Dr. Gonzalez Spoke With: Dr. Gonzalez New Order Received: Yes (D/C pt home) - Notification Comment Comment: Notified of pt reactive NST, contraction pattern of irregularity, small cervical change from fingertip to 1 cm dilation in one hour. Orders received to discharge home. Disposition - Disposition OB Disposition: Discharge to home Transferred to:: home Discharge Date: 01/11/19 Discharge Time: 03:45 I agree with the RN Medical Screening Exam: Yes Risk & Benefit of care provided described in d/c instruction: Yes Diagnosis: FALSE LABOR BEFORE 37 COMPLETED WEEKS OF GEST, THIRD TRI
== END 2019-01-11 03:45 | disposition home or self-care (01) ==
LOC: FBPOP 02:17
PROVIDERS: ATTEND Obstetrics & Gynecology
DX: O47.03 False labor before 37 completed weeks of gestation, third trimester (principal); Z3A.36 36 weeks gestation of pregnancy
CPT/HCPCS: 59025; 99213

== ENCOUNTER 2019-01-15 15:10 | Outpatient (CLI) | payer BC ==
[2019-01-15 15:25] VITALS: BP 124/65; PULSE 82; RESP 16; TEMP 96.7
--- NOTE | 2019-01-16 07:36 | P.MSEPDOC ---
Presenting Problems - Arrival Data Date of Arrival on Unit: 01/15/19 Time of Arrival on Unit: 15:04 Mode of Transport: Ambulatory - Complaint OB-Reason for Admission/Chief Complaint: Possible Onset of Labor Medical History - Information : 3 Para: 2 Number of Living Children: 2 - Gestational Age Gestational Age by NOEL (wks/days): 37 Weeks and 0 Days Review of Systems - Review of Systems Constitutional: No problems Breast: No problems ENT: No problems Cardiovascular: No problems Respiratory: No problems Gastrointestinal: No problems Genitourinary: No problems Musculoskeletal: No problems Neurological: No problems Skin: No problems Vital Signs - Temperature Temperature: 96.7 F Temperature Source: Temporal Artery Scan - Pulse Right Sitting Brachial Pulse Rate: 82 Pulse Assessment Method: Automatic Cuff - Respirations Respiratory Rate: 16 Oxygen Delivery Method: Room Air - Blood Pressure Right Arm Sitting Blood Pressure: 124/65 Blood Pressure Mean: 84 Blood Pressure Source: Automatic Cuff Medical Screen Scoring (Pre) - Cervical Exam Dilation: 1-3 cm = 1 Effacement: Exam Deferred Membranes: Intact - Uterine Contractions Frequency: > or = 36 weeks =2 Duration: > 40 seconds = 2 Intensity: N/A - Maternal Vital Signs Maternal Temperature: N/A Maternal Blood Pressure: N/A Signs of Preeclampsia: N/A Maternal Respirations: N/A - Maternal Trauma Maternal Trauma: N/A - Assessment - Baby A Baseline FHR: 130 Heart Rate - NICHD Category: Category I (Normal) = 0 NST: Reactive Position: N/A Station: N/A - Total Score - Baby A Total Score - Baby A: 5 - Total Score - Baby B Total Score - Baby B: 5 - Total Score - Baby C Total Score - Baby C: 5 - Level of Risk - Baby A Level of Risk - Baby A: Low (0-5) - Level of Risk - Baby B Level of Risk - Baby B: Low (0-5) - Level of Risk - Baby C Level of Risk - Baby C: Low (0-5) Physician Notification (Pre) - Physician Notified Physician Notified Date: 01/15/19 Physician Notified Time: 15:24 Physician/Practitioner Notifed:: Dr Koch Spoke With: dr Koch Disposition - Disposition OB Disposition: Discharge to home Discharge Date: 01/15/19 Discharge Time: 17:20 I agree with the RN Medical Screening Exam: Yes Risk & Benefit of care provided described in d/c instruction: Yes Diagnosis: FALSE LABOR AT OR AFTER 37 COMPLETED WEEKS OF GESTATION
== END 2019-01-15 17:20 | disposition home or self-care (01) ==
LOC: FBPOP 15:10
PROVIDERS: ATTEND Obstetrics & Gynecology
DX: O47.1 False labor at or after 37 completed weeks of gestation (principal); Z3A.37 37 weeks gestation of pregnancy
CPT/HCPCS: 59025; 99213

== ENCOUNTER 2019-01-24 05:15 | Inpatient (IN) | payer BC ==
[2019-01-24] MEDS ORDERED: METHYLERGONOVINE 0.2 MG/ML 1 ML AMP IM PRN (06:19)
[2019-01-24] MEDS ORDERED: LIDOCAINE 0.5% (PF) 5 MG/ML (50 ML SDV) SQ PRN (06:19)
[2019-01-24] MEDS ORDERED: TERBUTALINE 1 MG/ML VIAL SQ PRN (06:19)
[2019-01-24] MEDS ORDERED: AMPICILLIN 2,000 MG in SODIUM CHLORIDE 0.9% 100 ML IVPB STA (06:19)
[2019-01-24] MEDS ORDERED: OXYTOCIN 10 UNIT/ML 1 ML VIAL IM PRN (06:19)
[2019-01-24] MEDS ORDERED: CARBOPROST TROMETHAMINE 250 MCG/ML 1 ML AMP IM PRN (06:19)
[2019-01-24 06:43] LABS: Basophils # (A) 0.1 k/uL (0-0.2); Basophils % (A) 0 %; Eosinophils # (A) 0.2 k/uL (0-0.7); Eosinophils % (A) 1 %; HCT 33.5 % (34.0-46.0); HGB 11.1 gm/dL (11.4-16.0); Lymphocytes # (A) 2.5 k/uL (1.0-4.8); Lymphocytes % (A) 16 %; MCH 28.7 pg (25.0-35.0); MCHC 33.3 g/dL (31.0-37.0); MCV 86.1 fL (80.0-100.0); Mean Platelet Volume 7.3; Monocytes # (A) 0.8 k/uL (0-1.0); Monocytes % (A) 5 %; Neutrophils # (A) 12.3 k/uL (1.3-7.7); Neutrophils % (A) 77 %; Platelet Count 385 k/uL (150-450); RBC 3.89 m/uL (3.80-5.40); RDW 14.7 % (11.5-15.5); WBC 16.1 k/uL (3.8-10.6)
[2019-01-24] MEDS ORDERED: SODIUM CHLORIDE 0.9% 100 ML BAG ONE (06:44)
[2019-01-24] MEDS ORDERED: fentaNYL (PF) 50 MCG/ML 5 ML AMP ONE (06:44)
[2019-01-24] MEDS: LACTATED RINGERS 1,000 ML IV SCH ×2 (06:44→06:59)
[2019-01-24] MEDS ORDERED: ROPIVACAINE 5MG/ML 20ML VIAL ONE (06:44)
[2019-01-24 06:49] VITALS: BMI 30.8
--- NOTE | 2019-01-24 06:54 | P.HPOB ---
History of Present Illness H&P Date: 01/24/19 Chief Complaint: Contractions This patient is a pleasant 33-year-old 4 para 3 female estimated date of confinement 02/05/2019 estimated gestational age 38-2/7 weeks who presents to labor and delivery with complaint of contractions. Patient's found to be in early active labor. care has been uncomplicated. Patient had a negative group B strep culture but did have a positive with a previous . Review of Systems Genitourinary: Reports Menstruation: Reports amenorrhea Past Medical History Past Medical History: No Reported History History of Any Multi-Drug Resistant Organisms: None Reported Past Surgical History: No Surgical Hx Reported Past Anesthesia/Blood Transfusion Reactions: No Reported Reaction Past Psychological History: No Psychological Hx Reported Smoking Status: Current every day smoker Past Alcohol Use History: None Reported Past Drug Use History: None Reported - Past Family History Mother History Unknown: Yes Medications and Allergies Home Medications Medication Instructions Recorded Confirmed Type Nlk-Xhlk-Jonka Acid 1 cap PO DAILY 10/15/16 01/24/19 History [-U Capsule (formulary)] Allergies Allergy/AdvReac Type Severity Reaction Status Date / Time No Known Allergies Allergy Verified 01/24/19 05:20 Exam Intake and Output 01/23/19 01/23/19 01/24/19 14:59 22:59 06:59 Other: Weight 78.925 kg - OBG Physical Exam Abdomen: bowel sounds normal, no diffuse tenderness, no bruit present, no guarding noted, no hepatomegaly, no splenomegaly, no mass Vulva: both: normal Vagina: normal moisture, no discharge Cervix: no lesion (Cervix is 4 cm dilated 50% effaced -2 station), no discharge Uterus: enlarged Results blood work shows she is oh positive, rubella immune, RPR nonreactive, hepatitis B negative, group B strep was negative, ultrasounds have been normal, Glucola was normal. Result Diagrams: 01/24/19 06:14 Abnormal Lab Results - Last 24 Hours (Table) 01/24/19 Range/Units 06:14 WBC 16.1 H (3.8-10.6) k/uL Hgb 11.1 L (11.4-16.0) gm/dL Hct 33.5 L (34.0-46.0) % Neutrophils # 12.3 H (1.3-7.7) k/uL Assessment and Plan Assessment: This is a pleasant 33-year-old 4 para 3 female 38-2/7 weeks gestation with active labor. Patient is a history of positive strep with previous pregnancies therefore we will treat prophylactically even though her culture was negative this . Pain control per patient request. Anticipate vaginal delivery. (1) 38 weeks gestation of Current Visit: Yes Status: Acute Code(s): Z3A.38 - 38 WEEKS GESTATION OF SNOMED Code(s): 84895272 (2) Normal labor Current Visit: No Status: Acute Code(s): O80 - ENCOUNTER FOR FULL-TERM UNCOMPLICATED DELIVERY; Z37.9 - OUTCOME OF DELIVERY, UNSPECIFIED SNOMED Cod e(s): 44651669
[2019-01-24] MEDS ORDERED: OXYTOCIN 30 UNITS/500 ML NS 30 UNIT in SALINE 1 500ML.BAG IV SCH (09:00)
[2019-01-24] MEDS ORDERED: AMPICILLIN 1,000 MG in SODIUM CHLORIDE 0.9% 50 ML IVPB SCH (10:30)
[2019-01-24] MEDS ORDERED: OXYTOCIN 20 UNITS/1000 ML NS 1,000 ML IV SCH (11:14)
[2019-01-24] MEDS ORDERED: ACETAMINOPHEN TAB 325 MG TAB PO PRN (11:14)
[2019-01-24] MEDS ORDERED: WITCH HAZEL 1 EACH MED..PAD TOPICAL PRN (11:14)
[2019-01-24] MEDS ORDERED: BISACODYL 10 MG SUPP RECTAL PRN (11:14)
[2019-01-24] MEDS ORDERED: ZOLPIDEM 5 MG TAB PO PRN (11:14)
[2019-01-24] MEDS ORDERED: LANOLIN CREAM 5 GM TUBE TOPICAL PRN (11:14)
[2019-01-24] MEDS ORDERED: diphenhydrAMINE 25 MG CAP PO PRN (11:14)
[2019-01-24] MEDS ORDERED: HYDROCORTISONE 2.5% RECTAL CREAM 30 GM TUBE RECTAL PRN (11:14)
[2019-01-24] MEDS ORDERED: diphenhydrAMINE 50 MG/ML 1 ML VIAL IVP PRN (11:14)
[2019-01-24] MEDS ORDERED: BENZOCAINE/MENTHOL SPRAY 1 GM/SPRAY AEROSOL TOPICAL PRN (11:14)
[2019-01-24] MEDS ORDERED: SIMETHICONE 80 MG CHEWABLE PO PRN (11:14)
--- NOTE | 2019-01-24 12:47 | P.PROBDLV ---
Vaginal Delivery Note - . Vaginal Delivery Note: Normal vaginal delivery viable female Apgars 9 and 10 delivery time is 1106 hrs. Please see dictated H&P for intimate details of this patient's admission. Brief summary this is a pleasant 33-year-old 3 para 2 female 38-2/7 weeks gestation admitted this morning in active labor. Patient is 4 cm dilated is artificial rupture membranes for clear fluid. Labor progresses and she does get an epidural for pain control. Patient quickly progresses at this time and gets to complete. She pushes the head to the perineum. 's head is . heart tones then go into the 70s. To facilitate delivery at this time a midline episiotomy is made and we have easily delivery of the infant's head. Mouth and nares are bulb suctioned and there is a nuchal cord which is reduced. We then have delivery of the anterior posterior shoulders with gentle downward traction. This is a vigorous viable female infant Apgars are 9 and 10 delivery time was 1106 hrs. After delivery of the the umbilical cord is allowed to quit pulsating is then doubly clamped and cut. The placenta is then spontaneously delivered intact. Estimated blood loss is approximately 100 mL. The second-degree midline laceration is repaired with 3-0 Vicryl in the usual fashion and excellent reapproximation is noted. All counts are correct 3. There are no complications. Infant and mother are stable in delivery room.
[2019-01-24] MEDS: IBUPROFEN 600 MG TAB PO PRN ×2 (13:55→20:52)
[2019-01-24 18:08] VITALS: RESP 16
[2019-01-24] MEDS: SENNOSIDES-DOCUSATE SODIUM 1 EACH TAB PO SCH (18:09)
--- NOTE | 2019-01-24 23:07 | P.MSEPDOC ---
Presenting Problems - Arrival Data Date of Arrival on Unit: 01/24/19 Time of Arrival on Unit: 06:00 Mode of Transport: Wheelchair - Complaint OB-Reason for Admission/Chief Complaint: Possible Onset of Labor Medical History - Information : 3 Para: 2 Term: 2 : 0 Abortions: Spontaneous or Elective: 0 Number of Living Children: 2 - Gestational Age Gestational Age by NOEL (wks/days): 38 Weeks and 2 Days Vital Signs - Temperature Temperature: 98.5 F Temperature Source: Axillary - Pulse Right Brachial Pulse Rate: 62 Pulse Assessment Method: Auscultation - Respirations Respiratory Rate: 16 Oxygen Delivery Method: Room Air - Blood Pressure Right Arm Blood Pressure: 106/57 Blood Pressure Mean: 73 Blood Pressure Source: Automatic Cuff Physician Notification (Pre) - Notification Comment Comment: Dr. Koch saw pt at bedside, H&P done I agree with the RN Medical Screening Exam: Yes Risk & Benefit of care provided described in d/c instruction: Yes Diagnosis: ENCOUNTER FOR FULL-TERM UNCOMPLICATED DELIVERY
[2019-01-25] MEDS: SENNOSIDES-DOCUSATE SODIUM 1 EACH TAB PO SCH ×2 (02:20→09:56)
[2019-01-25] MEDS: IBUPROFEN 600 MG TAB PO PRN (06:19)
--- NOTE | 2019-01-25 06:22 | P.PNOBGVD ---
Subjective - Subjective Patient reports: Reports appetite normal, Reports voiding normally, Reports pain well controlled, Reports ambulating normally : doing well Objective - Latest Vital Signs Latest vital signs: Vital Signs Temp Pulse Resp BP 01/25/19 00:00 98.2 F 77 16 97/51 01/24/19 23:07 98.5 F 62 16 106/57 01/24/19 20:00 98.0 F 70 16 103/57 01/24/19 16:00 98.5 F 62 16 106/57 01/24/19 13:18 96.4 F L 83 18 112/57 01/24/19 12:50 87 18 118/58 01/24/19 12:20 96.3 F L 72 18 105/67 01/24/19 12:05 73 18 106/59 01/24/19 11:50 81 18 108/57 01/24/19 11:35 82 18 114/64 01/24/19 11:20 97.3 F L 86 18 124/65 Intake and Output 01/24/19 01/24/19 01/25/19 14:59 22:59 06:59 Intake Total 1300 Output Total 100 Balance -100 1300 Intake: Intake, IV Titration 1300 Amount Lactated Ringers 1,000 ml 500 @ 125 mls/hr IV .Q8H [facility] Rx#:[id number] Oxytocin 20 Units/1000 ml 800 Ns 1,000 ml @ Per Protocol IV .Q0M [facility] Rx#: [id number] Output: Estimated Blood Loss 100 Other: # Voids 1 - Exam Lungs: bilateral: normal Chest: Normal S1, Normal S2 Extremities: Present: normal Abdomen: Present: normal appearance, soft Uterus: Present: normal, firm - Labs Labs: Abnormal Lab Results - Last 24 Hours (Table) 01/24/19 Range/Units 06:14 WBC 16.1 H (3.8-10.6) k/uL Hgb 11.1 L (11.4-16.0) gm/dL Hct 33.5 L (34.0-46.0) % Neutrophils # 12.3 H (1.3-7.7) k/uL Assessment and Plan Assessment: day #1. Patient is resting without complaints. She wishes to go home. Vital signs are stable she is afebrile. Uterus is firm nontender and she is having normal lochia. My impression is a normal course. Plan is to continue routine care discharge home later today (1) 38 weeks gestation of Current Visit: Yes Status: Acute Code(s): Z3A.38 - 38 WEEKS GESTATION OF SNOMED Code(s): 04968073 (2) Normal labor Current Visit: No Status: Acute Code(s): O80 - ENCOUNTER FOR FULL-TERM UNCOMPLICATED DELIVERY; Z37.9 - OUTCOME OF DELIVERY, UNSPECIFIED SNOMED Code(s): 16452809
--- NOTE | 2019-01-25 06:27 | P.DS ---
Providers Date of admission: 01/24/19 06:07 Expected date of discharge: 01/25/19 Attending physician: Mike Koch Primary care physician: Stated None - Discharge Diagnosis(es) (1) 38 weeks gestation of Current Visit: Yes Status: Acute (2) Normal labor Current Visit: No Status: Acute Hospital Course: Please see dictated H&P for intimate details of this patient's admission. Brief summary this pleasant 33-year-old 3 para 2 female admitted to labor and delivery in active labor. Patient quickly goes on have a vaginal delivery viable female infant. Please see dictated delivery note. day 1 patient complaints wishes to go home. Patient's felt be stable for discharge home follow up with me in 6 weeks. Procedures: Normal vaginal delivery Patient Condition at Discharge: Good Plan - Discharge Summary Discharge Rx Participant: No New Discharge Prescriptions: New Ibuprofen [Motrin] 600 mg PO Q6HR PRN #30 tab PRN Reason: Mild Pain Or Fever >= 100.5 No Action Atq-Felc-Vbgbu Acid [-U Capsule (formulary)] 1 cap PO DAILY Discharge Medication List Ojg-Ewsu-Iizkk Acid [-U Capsule (formulary)] 1 cap PO DAILY 10/15/16 [History] Ibuprofen [Motrin] 600 mg PO Q6HR PRN #30 tab 01/25/19 [Rx] Follow up Appointment(s)/Referral(s): Mike Koch MD [STAFF PHYSICIAN] - 03/05/19 9:45 am Patient Instructions/Handouts: Vaginal Delivery (DC) Activity/Diet/Wound Care/Special Instructions: No intercourse or anything per vagina for 6 weeks. Please call if any fever, chills, excessive vaginal bleeding, and/or abdominal pain. Discharge Disposition: HOME SELF-CARE
[2019-01-25 09:56] VITALS: BP 120/84; PULSE 80; TEMP 97.9
== END 2019-01-25 12:05 | disposition home or self-care (01) | DRG 807 ==
LOC: FBPOP 05:15 → 4FBP 06:07
PROVIDERS: ADMIT Obstetrics & Gynecology; ATTEND Obstetrics & Gynecology
PROC: 10907ZC Drainage of Amniotic Fluid, Therapeutic from Products of Conception, Via Natural or Artificial Opening (ICD-10-PCS; principal; 2019-01-24)
PROC: 0KQM0ZZ Repair Perineum Muscle, Open Approach (ICD-10-PCS; principal; 2019-01-24)
PROC: 10E0XZZ Delivery of Products of Conception, External Approach (ICD-10-PCS; principal; 2019-01-24)
PROC: 00HU33Z Insertion of Infusion Device into Spinal Canal, Percutaneous Approach (ICD-10-PCS; principal; 2019-01-24)
PROC: 3E0R3NZ Introduction of Analgesics, Hypnotics, Sedatives into Spinal Canal, Percutaneous Approach (ICD-10-PCS; principal; 2019-01-24)
DX: O69.81X0 Labor and delivery complicated by cord around neck, without compression, not applicable or unspecified (principal); Z37.0 Single live birth; O70.1 Second degree perineal laceration during delivery; O99.334 Smoking (tobacco) complicating childbirth; Z3A.38 38 weeks gestation of pregnancy; F17.200 Nicotine dependence, unspecified, uncomplicated
CPT/HCPCS: 59025; 85025; 86850; 86900; 86901; 99213

== ENCOUNTER → 2020-08-20 | Outpatient (CLI) | payer OTHER ==
--- NOTE | 2020-08-20 14:18 | MM ---
Reason for exam: screening (asymptomatic). Baseline mammogram. History: Family history of breast cancer in maternal grandmother at age 63 and breast cancer in maternal aunt at age 30. Took hormonal contraceptives for 1 year beginning at age 20. Physical Findings: Nurse did not find any significant physical abnormalities on exam. MG 3D Screening Mammo W/Cad Bilateral CC and MLO view(s) were taken. There are scattered fibroglandular densities. There is no discrete abnormality. These results were verbally communicated with the patient and result sheet given to the patient on 08/20/20. ASSESSMENT: Negative, BI-RAD 1 RECOMMENDATION: Routine screening mammogram of both breasts at age 40.
== END | disposition home or self-care (01) ==
LOC: RADMAMWWP 13:24
PROVIDERS: ATTEND Obstetrics & Gynecology
DX: Z12.31 Encounter for screening mammogram for malignant neoplasm of breast (principal); Z80.3 Family history of malignant neoplasm of breast
CPT/HCPCS: 77063; 77067